=== PATIENT | female | born 1980 | race Caucasian/White ===

== ENCOUNTER 2016-12-12 12:25 | Emergency (ER) | payer SELFPAY ==
[~2016-12-12] VITALS: Ht 175.3 cm; Wt 95.5 kg
[2016-12-12 12:33] VITALS: BP 104/67; PULSE 56; RESP 16; O2SAT 100
[2016-12-12] MEDS ORDERED: Alum-Mag Hydrox-Simeth 30 mL Suspension PO ONE (13:45)
--- NOTE | 2016-12-12 13:50 | ED.REPORT ---
HPI-General Illness Date of Service Dec 12, 2016 ED Provider: Gee Segura MD Pt is a 36 y/o healthy female presenting to the ED c/o gradually worsening intermittent CP with radiation to her back onset yesterday. She denies mechanism of injury. Her pain is not exertional. She c/o associated cough. She denies N/V/D, diaphoresis, SOB. Nursing Notes Stated Complaint: CHEST PAIN Chief Complaint: Chest Pain Nursing Notes Reviewed: Yes Allergies: Coded Allergies: No Known Allergies (Verified , 03/06/04) General Time Seen by MD: 13:03 Chief Complaint Chest pain Hx Obtained From: Patient Arrived By: Walk-in Sudden in Onset?: No Onset Occurred: Yesterday Symptom Duration: Intermittent Location: : Chest Quality: Painful, Stabbing Radiation: : Back Severity: Current: Mild Severity: Maximum: Moderate Past Medical History Past Medical History Denies Past Surgical History None reported Smoking History Current Every Day Smoker Ambulatory Status Independent Review of Systems Full Review of Systems Constitutional: Denies: Chills, Fever Respiratory: Reports: Non-productive cough, Denies: Shortness of breath Cardiovascular: Reports: Chest pain, Denies: Edema GI: Denies: Abdominal pain, Diarrhea, Nausea, Vomiting Complete sys rev & neg: except as marked. Physical Exam Vital Signs Vital Signs Date Time Temp Pulse Resp B/P Pulse Ox O2 Delivery O2 Flow Rate FiO2 12/12/16 14:32 36.8 56 14 119/56 100 Room Air 12/12/16 12:33 36.8 56 16 104/67 100 Room Air Initial VS: Reviewed, Vital signs normal Head / Eyes: Atraumatic, Normocephalic, PERRL ENT: Mucous membranes moist, Conjunctiva normal, No scleral icterus Neck: Supple, Full range of motion Cardiovascular: Regular rate & rhythm, Heart sounds normal, Intact distal pulses Abdomen / GI: Soft, Non-tender, No guarding, No rebound, No distention Extremities: Vascular intact, Neuro intact, No swelling, No tenderness Skin: Warm, Dry, No cyanosis Neurologic: Alert, Oriented, Nonfocal Psychiatric: Mood/affect normal, Behavior normal, Normal thought content General/Constitutional: Awake, Alert, No acute distress, Well appearing, Cooperative, Not toxic appearing Respiratory / Chest: Atraumatic, Breath sounds NL, Breath sounds = bilat, No respiratory distress, No rales, No rhonchi, No wheezing, No retractions, No stridor, No chest wall deformity, No crepitus Tender over xiphoid region Interpretation & Diagnostics ECG Interpretation ECG Interpretation: Sinus rhythm rate 56 Nonspecific IVCD Time: 13:17 Interpreted by: ED physician Normal ECG Interpretation: No acute ischemic changes X-Ray Chest Interpretation Chest Xray Interpretation: IMPRESSION: No acute process. Dictated by: Regan Wolfe M.D. on 12/12/2016 at 13:16 Approved by: Regan Wolfe M.D. on 12/12/2016 at 13:17 View: Portable, AP & lat Interpretation / Wet Read by: Interpret - Radiologist Re-Eval/Medical Decision Med Decision/Clinical Course Pt is a 36 y/o healthy female presenting to the ED c/o gradually worsening intermittent CP with radiation to her back onset yesterday. She denies mechanism of injury. Her pain is not exertional. She c/o associated cough. She denies N/V/D, diaphoresis, SOB. Patient is afebrile stable vital signs and examination as above. The patient's pain is reproducible palpation to her chest wall. CXR: Obtained, reviewed and interpreted by myself shows no evidence of acute infiltrates, effusions or pneumothorax. Cardiac and mediastinal silhouette normal. No bony or soft tissue abnormalities. EKG was obtained as documented above, there were no acute ischemic abnormalities noted. Overall presentation most consistent with musculoskeletal etiology. At this time patient is very low risk for pulmonary embolism and her overall presentation is not suggestive of PE. I do not feel that workup for pulmonary embolism is immediately indicated. Patient is low risk cardiac standpoint and I do not feel that further workup for acute cardiac syndrome is indicated given her overall presentation. Patient not suggestive of GI etiology such as peptic ulcer disease or biliary process. I do not feel that laboratory studies or imaging studies are further indicated. Patient was provided with follow-up and return precautions and discharged in good condition. She will take ibuprofen as needed for pain and apply ice\hot packs. She verbalized understanding and agreeable with the plan. Time of Eval: 13:51 Re-Evaluation/Progress Note: Pt rechecked. Informed pt of plan for treatment. Pt understands and agrees with plan for treatment. F/U instructions and RTER warnings given. All questions addressed. Counseled Regarding: Diagnosis, Need for follow-up, When/why to return to ED Discharge & Departure Primary Impression: Chest pain Chest pain type: unspecified Qualified Code: R07.9 - Chest pain, unspecified Additional Impression: Chest wall pain Disposition: Home Discharge Condition All VS Reviewed: Yes Condition: Stable Patient Instructions: Chest Pain (ED) Additional Instructions: Thank you for seeking care at emergency room. It is difficult for us to make definitive diagnoses in the ED but we believe that you are experiencing musculoskeletal chest pain Our primary goal today in the ED was to evaluate you for any life-threatening conditions. Your evaluation was reassuring. You should follow-up with your primary doctor in the next week. You should return to the ED immediately if you develop worsening or persistent chest pain fevers, vomiting, cough, shortness of breath,lightheadedness, weakness or any other concerning signs or symptoms. Thank you for letting us partake in your care today. Referrals: [facility] Scribe Attestation Portions of this note were transcribed by Arnoldo Mills. I, Dr. Segura personally performed the history, physical exam and medical decision-making; I reviewed and confirmed the accuracy of the information in the transcribed note. Signed by Sheri Recinos, 12/12/16 - 1400 Gee Segura MD Dec 12, 2016 13:49 ARNOLDO MILLS Dec 12, 2016 13:52
--- NOTE | 2016-12-12 13:51 | DRSVH ---
PROCEDURE: X-RAY CHEST, TWO VIEWS ([id number]) INDICATIONS: chest pain TECHNIQUE: 2 views of the chest were acquired. COMPARISON: None. FINDINGS: Surgical changes and devices: None. Lungs and pleura: No pleural effusions or pneumothorax. Lungs are clear. Mediastinum: Mediastinal contours are normal. Heart size is normal. Bones and chest wall: No suspicious bony abnormalities. Soft tissues appear unremarkable. IMPRESSION: No acute process. Dictated by: Regan Wolfe M.D. on 12/12/2016 at 13:16 Approved by: Regan Wolfe M.D. on 12/12/2016 at 13:17
[2016-12-12 14:32] VITALS: BP 119/56; PULSE 56; RESP 14; O2SAT 100
== END 2016-12-12 14:34 | disposition home or self-care (01) ==
LOC: SED 12:25
DX: R07.89 Other chest pain (principal); R05 Cough; F17.200 Nicotine dependence, unspecified, uncomplicated; Z87.01 Personal history of pneumonia (recurrent)